=== PATIENT | male | born 1960 | race Caucasian/White ===

== ENCOUNTER 2024-01-29 04:35 | Emergency (ER) | payer MEDICAID ==
[~2024-01-29] VITALS: Ht 165.1 cm; Wt 62.4 kg
[2024-01-29 04:43] VITALS: O2SAT 99
[2024-01-29 05:21] LABS: BASOPHILS % 1.2 % (0.0-2.0); EOSINOPHILS % 1.6 % (0.0-5.0); HEMATOCRIT. 41.9 % (42.0-52.0); HEMOGLOBIN. 13.8 g/dL (14.0-18.0); LYMPHOCYTES % 13.7 % (20.0-50.0); MEAN CORPUSCULAR HEMOGLOBIN 30.3 pg (28.0-32.0); MEAN CORPUSCULAR HGB CONC 32.9 g/dL (31.0-37.0); MEAN CORPUSCULAR VOLUME 92.1 fL (80.0-94.0); MEAN PLATELET VOLUME 8.6 fl (7.4-10.4); MONOCYTES % 4.3 % (2.0-8.0); NEUTROPHILS % 79.2 % (40.0-76.0); PLATELET 252 x1000/uL (130-400); RED BLOOD CELL COUNT 4.55 mill/uL (4.7-6.1); RED CELL DISTRIBUTION WIDTH 14.7 % (11.6-14.6)
[2024-01-29 05:28] LABS: CHLORIDE 105 mEq/L (98-107); POTASSIUM 3.9 mEq/L (3.5-5.1); SODIUM 141 mEq/L (136-145)
[2024-01-29 05:29] LABS: CARBON DIOXIDE 28 mEq/L (21-32)
[2024-01-29] MEDS ORDERED: MAGNESIUM/ALUMINUM HYDROXIDE/SIMETHICONE 30ML UDC PO ONE (05:30)
[2024-01-29] MEDS ORDERED: ONDANSETRON 4MG ODT PO ONE (05:30)
[2024-01-29] MEDS ORDERED: FAMOTIDINE 20MG TABLET PO ONE (05:30)
[2024-01-29 05:34] LABS: GLUCOSE 120 mg/dL (70-105); UREA NITROGEN BLOOD 14 mg/dL (9-23)
[2024-01-29 05:35] LABS: TROPONIN I HIGH SENSITIVITY 4 ng/L (3.0-53)
[2024-01-29 05:36] LABS: ALANINE AMINOTRANSFERASE 36 IU/L (10-49); ALBUMIN 4.4 g/dL (3.2-4.8); ASPARTATE AMINOTRANSFERASE 49 IU/L (<34)
[2024-01-29 05:37] LABS: BILIRUBIN DIRECT 0.3 mg/dL (<=3.0); BILIRUBIN TOTAL 1.1 mg/dL (0.1-1.0); PROTEIN TOTAL 7.4 g/dL (6.0-8.3)
[2024-01-29] MEDS: SODIUM CHLORIDE 0.9% 1,000 ML IV ONE (07:14)
[2024-01-29] MEDS: FAMOTIDINE 20MG/2ML VIAL IV ONE (07:14)
[2024-01-29] MEDS: ONDANSETRON HCL 4MG/2ML INJ IV ONE (07:14)
[2024-01-29] MEDS ORDERED: IOHEXOL-300 100 ML BOTTLE ONE (07:28)
[2024-01-29] MEDS ORDERED: ONDA4TAB50 MT (07:43)
[2024-01-29] MEDS ORDERED: MAG-55 MT (07:43)
[2024-01-29] MEDS ORDERED: FAMO-135 MT (07:43)
[2024-01-29 08:08] VITALS: BP 132/80; PULSE 74; RESP 16; TEMP 37.00296; O2SAT 99
== END 2024-01-29 08:10 | disposition home or self-care (01) ==
LOC: ER 04:35
DX: K52.9 Noninfective gastroenteritis and colitis, unspecified (principal)
CPT/HCPCS: 80076; 80048; 83690; 85025; 84484; 36415; 74177; 93005; 96361; 96374; 96375; 99285; Q9967; J3490; J2405; J7030; Z7610 ×2

== ENCOUNTER 2024-04-30 15:58 | Emergency (ER) | payer MEDICAID, OTHER ==
[~2024-04-30] VITALS: Ht 165.1 cm; Wt 67.0 kg
[~2024-04-30 15:58] MED LIST: FAMO-135 MT; MAG-55 MT; ONDA4TAB50 MT
[2024-04-30 16:21] VITALS: O2SAT 99
[2024-04-30] MEDS: IBUPROFEN 600MG TABLET PO ONE (17:52)
[2024-04-30] MEDS ORDERED: T3 PO ×2 (19:40→19:42)
[2024-04-30] MEDS ORDERED: IBUP-2029 MT (19:40)
[2024-04-30 21:21] VITALS: BP 110/63; PULSE 88; RESP 18; TEMP 36.6; O2SAT 99
== END 2024-04-30 21:21 | disposition home or self-care (01) ==
LOC: ER 15:58
DX: S82.832A Other fracture of upper and lower end of left fibula, initial encounter for closed fracture (principal); Z79.899 Other long term (current) drug therapy; W19.XXXA Unspecified fall, initial encounter; Y93.89 Activity, other specified; Y92.89 Other specified places as the place of occurrence of the external cause; Y99.8 Other external cause status
CPT/HCPCS: 73560; 73590; 73610; 29505; 99284; Z7610